=== PATIENT | male | born 1955 | race Caucasian/White ===

== ENCOUNTER 2018-10-27 05:43 | Day surgery (SDC) | payer OTHER ==
[2018-10-27] VITALS (11 sets, daily range): BP systolic 114–151; BP diastolic 65–81; PULSE 60–68; RESP 10–16; Ht 170.2 cm; Wt 108.3 kg
[~2018-10-27] VITALS: Ht 170.2 cm; Wt 108.3 kg
[~2018-10-27 05:43] MED LIST: ACET325T33 PO; AMLO-147 PO; AMLO5TAB4 PO; ATOR40TA68 PO; ERGO2000 PO; FINA5TAB4 PO; LEVO500T10 PO; LOSA100T15 PO; METF500T24 PO; TAMS-14 PO; TAMS0.4C2 PO
[2018-10-27] MEDS ORDERED: CEFAZOLIN 2 GM/50 ML (PMX) 50 ML IVPB SCH (06:00)
[2018-10-27] MEDS ORDERED: BUPIVACAINE 0.25% (MPF) 30 ML INJ ONE (06:50)
[2018-10-27] MEDS ORDERED: SOD CHLORIDE 0.9% 1,000 ML IV ONE (07:00)
--- NOTE | 2018-10-27 07:16 | PREAC ---
Date/Time of Note Date/Time of Note DATE: 10/27/18 TIME: 07:15 Anesthesia Eval and Record Evaluation Time Pre-Procedure Interview DATE: 10/27/18 TIME: 07:15 Age 63 Sex male NPO: 8 hrs Preoperative diagnosis left neck mass Planned procedure excision left neck mass Past Medical History Past Medical History: Includes Cardio: HTN, Dyslipidemia Endo: Diabetes GI: Obesity Surgery & Anesthesia Issues No known issue Meds Anticoagulation: No Beta Flori within 24 hr: No Reason Beta Flori not given: Pt. not on B-Flori Active Scripts Tamsulosin Hcl* (Tamsulosin Hcl*) 0.4 Mg Cap.er.24h, 0.4 MG PO HS for 30 Days, CAP Prov:YSABEL HERRERA . 10/07/15 Finasteride* (Finasteride*) 5 Mg Tablet, 5 MG PO DAILY for 30 Days, TAB [facility] 10/07/15 Levofloxacin* (Levofloxacin*) 500 Mg Tablet, 500 MG PO DAILY for 7 Days, [facility] Amlodipine Besylate* (Amlodipine Besylate*) 10 Mg Tablet, 10 MG PO DAILY, #30 TAB 2 Refills Prov:YSABEL HERRERA 10/07/15 Acetaminophen* (Tylenol*) 325 Mg Tablet, 650 MG PO Q4H PRN for PAIN AND OR ELEVATED TEMP, #30 TAB [facility] 10/07/15 Current Medications Cefazolin Sodium/ Dextrose 50 ml @ 100 mls/hr PRE-OP IVPB ; Start 10/27/18 at 06:00; Stop 10/27/18 at 10:00 Sodium Chloride 1,000 ml @ 75 mls/hr [id number] ONCE IV Last administered on 10/27/18at 06:57; Admin Dose 75 MLS/HR; Start 10/27/18 at 07:00; Stop 10/27/18 at 20:19 Meds reviewed: Yes Allergies Coded Allergies: No Known Allergy (Unverified , 10/05/15) Allergies Reviewed: Yes Labs/Studies Labs Reviewed: Reviewed by anesthesiologist test: N/A Pre-procedure Exam Last vitals Vital Signs Date Temp Pulse Resp B/P (MAP) Pulse Ox O2 O2 Flow FiO2 Time Delivery Rate 10/27/18 98.3 63 16 151/81 96 Room Air 05:35 (104) Airway: Adequate mouth opening, Adequate thyromental dist Mallampati: Mallampati II Teeth: Normal Lung: Normal Heart: Normal ASA Physical Status ASA physical status: 2 Emergency: None Planned Anesthetic General/MAC: LMA Planned Pain Management Parenteral pain med Pre-operative Attestations Prior to commencing anesthesia and surgery, the patient was re-evaluated, there was verification of: *The patient's identity *The results of appropriate recent lab work and preoperative vital signs *The above evaluation not changing prior to induction *Anesthetic plan, risk benefits, alternative and complications discussed with patient/family; questions answered; patient/family understands, accepts and wishes to proceed. YOLETTE ANTONY Oct 27, 2018 07:16
[2018-10-27] MEDS ORDERED: PROPOFOL 20 ML ONE (07:40)
[2018-10-27] MEDS ORDERED: FENTAnyl 50 MCG/ML VIAL ONE (07:40)
[2018-10-27] MEDS ORDERED: LIDOCAINE 2% (SDV) 5 ML INJ ONE (08:12)
--- NOTE | 2018-10-27 08:16 | OPR ---
Date/Time of Note Date/Time of Note DATE: 10/27/18 TIME: 08:14 Operative Report Procedure Date: Oct 27, 2018 Preoperative Diagnosis left neck mass Postoperative Diagnosis same Operation/Procedure Performed 1. excision of left neck mass 11 cm mass 11 cm incision 2. localized adjacent tissue transfer with the use of skin flaps 33 sq cm defect of left neck 3. therapeutic injection of subcutaneous local anesthesia Surgeon see signature line [facility] none Anesthesia Type: general Estimated Blood Loss: 0 - 10 ml's Transfusion none Specimen left neck mass Grafts/Implants none Complications none Pt Condition Post Procedure: stable Indications This is a 63-year-old male with a left neck mass. He request surgical excision of the mass. Risks alternatives benefits and personal were discussed the p atient. Patient expressed understanding and consents to the operation. Procedure Description Patient is taken to the OR and prepped and draped in usual sterile fashion. Surgical timeout was performed. IV antibiotics given. Elliptical incision was made over the left neck mass with a 15 blade. Dissection with cautery scant to the platysma. The mass was then circumferentially excised. Good hemostasis status. Due to the large tissue defect localization to his transfer with his skin flaps were performed. Multilayer closed with interrupted 0 Vicryl and skin fatoumata. Therapeutic subcutaneous local anesthesia was injected at the incision site. Dry dressings were applied. Eduin NAIK Oct 27, 2018 08:16
--- NOTE | 2018-10-27 08:22 | PAC ---
Date/Time of Note Date/Time of Note DATE: 10/27/18 TIME: 08:21 Post-Anesthesia Notes Post-Anesthesia Note Last documented vital signs Vital Signs Date Temp Pulse Resp B/P (MAP) Pulse Ox O2 O2 Flow FiO2 Time Delivery Rate 10/27/18 98.3 63 16 151/81 96 Room Air 0821 (104) Activity: WNL Respiratory function: WNL Cardiovascular function: WNL Mental status: Baseline Pain reasonably controlled: Yes Hydration appropriate: Yes Nausea/Vomiting absent: Yes YOLETTE ANTONY Oct 27, 2018 08:21
[2018-10-27] MEDS ORDERED: MEPERIDINE 25 MG INJ IV PRN (08:30)
[2018-10-27] MEDS ORDERED: OXYCODONE/ACETAMINOPHEN (5/325) TAB PO PRN ×2 (08:30)
[2018-10-27] MEDS ORDERED: FENTAnyl 50 MCG/ML VIAL IV PRN ×3 (08:30)
[2018-10-27] MEDS ORDERED: HYDROCODONE/APAP (5/325) TAB PO ONE (08:30)
[2018-10-27] MEDS ORDERED: ONDANSETRON 4 MG INJ IV PRN (08:30)
[2018-10-27] MEDS ORDERED: hydrALAzine 20 MG INJ IV PRN (08:30)
[2018-10-27] MEDS ORDERED: METOCLOPRAMIDE 10 MG INJ IV PRN (08:30)
[2018-10-27] MEDS ORDERED: EPHEDrine 25 MG/5 ML SYG IV PRN (08:30)
[2018-10-27] MEDS ORDERED: LABETALOL HCL 20MG INJ IV PRN (08:30)
[2018-10-27] MEDS ORDERED: DIPHENHYDRAMINE 50 MG INJ IV PRN (08:30)
[2018-10-27] MEDS ORDERED: ALBUTEROL 0.083% (NEB) 2.5 MG/3 ML AMP HHN PRN (08:30)
[2018-10-27] MEDS ORDERED: CEFAZOLIN 1 GM INJ ONE (08:41)
== END 2018-10-27 10:25 | disposition home or self-care (01) ==
LOC: SDS 05:43
PROVIDERS: ATTEND Surgery
DX: D21.0 Benign neoplasm of connective and other soft tissue of head, face and neck (principal); I10 Essential (primary) hypertension; E78.5 Hyperlipidemia, unspecified; E11.9 Type 2 diabetes mellitus without complications; E66.9 Obesity, unspecified
CPT/HCPCS: 14301; 82962; 88307; J0690; J3010; Z7512; Z7610